=== PATIENT | female | born 1980 | race Caucasian/White ===

== ENCOUNTER 2019-07-25 14:29 | Emergency (ER) | payer OTHER ==
[~2019-07-25] VITALS: Ht 157.5 cm; Wt 80.8 kg
--- NOTE | 2019-07-25 14:52 | NUR ---
PT TO ED AFTER MGLF TODAY. LAC TO LEFT LEAR LOBE. BLEEDING CONTROLLED. NO BLOOD THINNERS. PT DENIES TINNITUS, DIZZINESS OR DECREASED HEARING. PT CONNECTED TO MONITORS. VSS. NO NEEDS EXPRESSED. CALL LIGHT WITHIN REACH. AWAWITING EDMD ASSESSMENT.
[2019-07-25] MEDS ORDERED: LIDOCAINE-MPF 1%, 5ML ONE (15:04)
[2019-07-25] MEDS ORDERED: DIPH,PERTUSS(ACELL),TET VAC/PF 0.5 ML IM-VACC ONE ×2 (15:05→16:00)
--- NOTE | 2019-07-25 15:10 | NUR ---
pt declining tdap at this time.
[2019-07-25 15:21] VITALS: BP 138/58
--- NOTE | 2019-07-25 15:30 | NUR ---
pt resting in room. vss. pt now agreeable to tdap. pt medicated per oct. awaiting irrigation and sutures.
[2019-07-25] MEDS ORDERED: LIDOCAINE-MPF 1%, 5ML INFIL ONE (16:00)
--- NOTE | 2019-07-25 16:40 | NUR ---
samson rico for sutures.
--- NOTE | 2019-07-25 17:42 | NUR ---
MEÑO DICKSON REMAINS AT BS SUTURING.
== END 2019-07-25 18:31 | disposition home or self-care (01) ==
LOC: ED 16:32
DX: S01.312A Laceration without foreign body of left ear, initial encounter (principal); R51 Headache; W01.0XXA Fall on same level from slipping, tripping and stumbling without subsequent striking against object, initial encounter; Y93.89 Activity, other specified; Y92.89 Other specified places as the place of occurrence of the external cause; Y99.8 Other external cause status
CPT/HCPCS: 13152; 90471; 90715; 99285